=== PATIENT | male | born 1990 | race Caucasian/White ===

== ENCOUNTER 2019-02-09 10:44 | Emergency (ER) | payer OTHER ==
[~2019-02-09] VITALS: Ht 167.6 cm; Wt 87.6 kg
[2019-02-09 10:51] VITALS: Ht 167.6 cm; Wt 87.6 kg
[2019-02-09] MEDS ORDERED: KETOROLAC 60 MG INJ IM STA (11:26)
[2019-02-09] MEDS ORDERED: IBUP-1542 PO (11:33)
--- NOTE | 2019-02-09 11:33 | ERD ---
ER Documentation Chief Complaint Chief Complaint Complains of chest wall pain x 2 weeks worst yesterday HPI 28-year-old male complains of chest pain for the past 2 weeks. States that is gotten worse in the last day. Thinks the pain may have gotten worse due to helping his friend move. Also states that he has a history of heartburn. Denies SOB, dyspnea, lower extremity swelling or pain, pain on exertion, diaphoresis, nausea, radiating of pain, recent travel or immobilization, hemoptysis, dsypnea, history of clotting disorder, syncope, fever, or cough. ROS All systems reviewed and are negative except as per history of present illness. Medications Home Meds Active Scripts Famotidine* (Pepcid*) 20 Mg Tablet, 20 MG PO BID for GERD for 14 Days, TAB Prov:BOB MENDOZA 02/09/19 Ibuprofen* (Motrin*) 600 Mg Tab, 600 MG PO Q6 for pain, #30 TAB Prov:BOB MENDOZA 02/09/19 Reported Medications [None] No Conflict Check 11/07/11 Allergies Allergies: Coded Allergies: No Known Drug Allergies (Verified Allergy, Unknown, 02/09/19) PMhx/Soc History of Surgery: No (NO MED HX) Hx Miscellaneous Medical Probl: No (NO MEDICAL HX) Hx Alcohol Use: Yes (2X PER MO) Hx Substance Use: No Hx Tobacco Use: Yes (1 CIG PER DAY) Smoking Status: Current every day smoker FmHx Family History: No diabetes, No coronary disease, No other Physical Exam Vitals Vital Signs Date Temp Pulse Resp B/P (MAP) Pulse Ox O2 O2 Flow FiO2 Time Delivery Rate 02/09/19 97.0 83 20 132/87 98 10:51 (102) Physical Exam Const: No acute distress Head: Atraumatic Eyes: Normal Conjunctiva ENT: Normal External Ears, Nose and Mouth. Neck: Full range of motion. No meningismus. Resp: Clear to auscultation bilaterally Cardio: Regular rate and rhythm, no murmurs. Tender to palpation over the left anterior chest wall area. No bony deformity, edema, ecchymosis, or lesions noted. Abd: Soft, non tender, non distended. Normal bowel sounds Skin: No petechiae or rashes Back: No midline or flank tenderness Ext: No cyanosis, or edema Neur: Awake and alert Psych: Normal Mood and Affect Results 24 hrs Laboratory Tests Test 02/09/19 11:50 Troponin I < 0.012 ng/ml Current Medications Medications Dose Sig/Oliver Start Time Status Last (Trade) Ordered Route PRN Stop Time Admin Dose Reason Admin Ketorolac 60 mg ONCE STAT 02/09/19 DC 02/09/19 Tromethamine IM 11:26 11:34 (Toradol) 02/09/19 11:28 Procedures/MDM DIAGNOSTIC IMAGING REPORT Patient: KECIA TRUONG : 1990 Age: 28 Sex: M MR #: [id number] DOS: 02/09/19 1126 Ordering MD: BOB MENDOZA Location: [facility] Room/Bed: PROCEDURE: XR Chest. CLINICAL INDICATION: Chest pain TECHNIQUE: Frontal chest x-ray was obtained. COMPARISON: None. FINDINGS: The heart is not enlarged. Mediastinum is not widened. No hilar masses seen. Lungs are clear of any infiltrates. There is no effusion or pneumothorax. The osseous structures appear normal. IMPRESSION: No evidence for active cardiopulmonary disease. .Baldo Narayan MD, MD Date Time Electronically viewed and signed by .Baldo Narayan MD, MD on 02/09/2019 11:45 .A/ CC: BOB MENDOZA [id number] EKG: Rate/Rhythm: Normal Sinus Rhythm QRS, ST, T-waves: No changes consistent w/ acute ischemia Impression: No evidence of ischemia or arrhythmia Chest x-ray and EKG are performed as well as troponin. Everything was within normal limits. I have low suspicion for acute coronary syndrome, pulmonary embolism, aortic dissection, AAA, pneumothorax, esophageal rupture, pericarditis, myocarditis, or pneumonia based on EKG, imaging, labs, patient history and exam. Patient most likely seems to be suffering from costochondritis versus GERD. Patient discharged with strict ER precautions. Patient advised to follow up with PMD. All questions answered at discharge. Departure Diagnosis: Primary Impression: Chest wall pain Condition: Stable BOB MENDOZA Feb 09, 2019 11:33
[2019-02-09] MEDS ORDERED: FAMO-96 PO (11:34)
[2019-02-09 13:21] VITALS: BP 123/78; PULSE 79; RESP 20
== END 2019-02-09 13:22 | disposition home or self-care (01) ==
LOC: FTE 10:44
DX: R07.89 Other chest pain (principal); F17.210 Nicotine dependence, cigarettes, uncomplicated
CPT/HCPCS: 71045; 84484; 93005; 96372; 99285; J1885